=== PATIENT | male | born 1995 | race African-American/Black ===

== ENCOUNTER 2018-06-19 05:06 | Day surgery (SDC) | payer OTHER ==
[2018-06-17 16:06] VITALS: BMI 34.9
[2018-06-19] MEDS ORDERED: PROPOFOL 20 ML ONE ×3 (07:13)
[2018-06-19] MEDS ORDERED: ePHEDrine SULFATE 50 MG/1 ML AMPULE ONE (07:13)
[2018-06-19] MEDS ORDERED: SUCCINYLCHOLINE CHLORIDE 200 MG/10 ML VIAL ONE ×2 (07:15)
[2018-06-19] MEDS ORDERED: BUPIVACAINE HCL/PF 0.5% (5MG/ML) 10 ML VIAL ONE ×2 (07:25→07:36)
[2018-06-19] MEDS ORDERED: DEXAMETHASONE SOD PHOSPHATE/PF 10 MG/ML SDV ONE (07:25)
[2018-06-19] MEDS ORDERED: MIDAZOLAM HCL 2 MG/2 ML SINGLE DOSE VIAL ONE ×3 (07:27→08:10)
--- NOTE | 2018-06-19 08:05 | HP ---
[facility]ellite [facility] - Chief Complaint Chief Complaint: right knee pain/instability - Past Medical History Allergies/Adverse Reactions: Allergies Allergy/AdvReac Type Severity Reaction Status Date / Time No Known Allergies Allergy Verified 06/19/18 06:29 - Current Medications Current Medications: Home Medications Medication Instructions Recorded Oxycodone HCl/Acetaminophen 1 - 2 tab PO Q6H #30 tab MDD 6 06/19/18 [Percocet 5-325 mg Tablet] Satellite Physical Exam - Physical Examination Vital Signs: Vital Signs Period Temp Pulse Resp BP Sys/Engel Pulse Ox Last 24 Hr 98.6 F 94 18 130/72 98 General Appearance: Well Nourished, Well Developed, Alert & Oriented x3 ENT: Clear Lung: Normal air movement Heart: Regular rate & rhythm Extremities: Other (right knee- + swelling, + ttp ,decr rom, + lizz, + ant draw, nvi MRI + acl rupture) Neurological: Intact, Alert, Oriented Satellite Impression/Plan - Impression/Plan Impression: right knee internal derangement Operative Procedure: right knee arthroscopy with ACL reconstruction using btb autograft Date to be Performed: 06/19/18
[2018-06-19] MEDS ORDERED: ceFAZolin SODIUM 1 GM VIAL IVPB ONE (08:25)
[2018-06-19] MEDS ORDERED: ceFAZolin SODIUM 1 GM VIAL ONE (08:26)
--- NOTE | 2018-06-19 09:54 | OP ---
Operative Note - Note: Operative Date: 06/19/18 ([facility]) Pre-Operative Diagnosis: right knee acl rupture Operation: right knee arthroscopy with ACL reconstruction using autograft Post-Operative Diagnosis: Same as Pre-op Surgeon: Los Lorenzo Lipcoat Sprayer: Kristofer Whiting Anesthesiologist/GROUP LEADER SEMICONDUCTOR PROCESSING: Jose Elias Anderson Anesthesia: General, Local Specimens Removed: shavings Estimated Blood Loss (mls): 0 (tourniquet) Operative Report Dictated: Yes
[2018-06-19] MEDS ORDERED: oxyCODONE HCL 5 MG TABLET PO PRN (10:02)
[2018-06-19] MEDS ORDERED: ONDANSETRON 4 MG/2 ML VIAL IVPUSH PRN (10:02)
[2018-06-19] MEDS ORDERED: MEPERIDINE HCL CARPU-JECT 25 MG/1 ML DISP.SYRIN ONE (10:03)
[2018-06-19] MEDS ORDERED: LACTATED RINGERS SOLUTION 1,000 ML IV SCH (10:15)
--- NOTE | 2018-06-19 11:31 | OP ---
DATE OF OPERATION: 06/19/2018 PREOPERATIVE DIAGNOSIS: Right anterior cruciate ligament tear. POSTOPERATIVE DIAGNOSIS: Right anterior cruciate ligament tear. PROCEDURE: Right anterior cruciate ligament reconstruction with [id number] autograft harvesting. SURGICAL ATTENDING: Los Lorenzo MD [employer]: RAMONE Chris ANESTHESIA: Regional and spinal. CLOSURE: An Arthrex metallic interference screw fixation for graft, 2-0 Vicryl for paratenon and subcutaneous, 0 Vicryl for tendon and 3-0 Monocryl with skin glue for the skin. ESTIMATED BLOOD LOSS: Negligible. COMPLICATIONS: None. CONDITION: To recovery room in stable condition. TOURNIQUET TIME: Approximately an hour and 10 minutes. DESCRIPTION OF OPERATIVE PROCEDURE: Patient taken to the operating room on June 19, 2018. Regional and spinal anesthesia was administered by the anesthesiologist. IV Kefzol was prophylactically administered prior to the case. A well-padded pneumatic tourniquet was placed on the right proximal thigh. Right lower extremity was prepped and draped in the usual sterile fashion. Leg was exsanguinated with an Esmarch bandage and tourniquet was inflated to 275 mmHg. A 6-cm longitudinal midline incision over the patellar tendon was incised. Hemostasis achieved with Bovie cautery. This was done after the tourniquet was inflated to 275 mmHg. Flaps were made to expose the tendon from mid patella to tibial tubercle. The central 10 mm of the tendon was harvested using a 10-mm double blade; 10 x 25-mm plugs were harvested using a micro oscillating saw from the patella and the tibial tubercle. Two drill holes were drilled through each plug and passage of a No. 2 FiberWire suture as traction suture was applied. The tendon was prepared on the back table to fit snugly through 10-mm sizers, was measured and was placed on an antibiotic sponge until needed. Patellar tendon was closed using an 0 Vicryl interrupted suture. Next the arthroscopic portion of the case was performed. Superolateral portal was made with a 15 blade followed by a blunt trocar. The medial and lateral infrapatellar portals were then made through the previously made incision. Scope was placed in the lateral infrapatellar portal and up into the suprapatellar pouch. Pouch was visualized to be clean. Medial and lateral gutters were visualized to be clean. The undersurface of the patella, trochlea were visualized to be intact with valgus stress on the knee. Medial compartment was entered and the medial meniscus was visualized, probed, found to be intact. Medial femoral condyle was run, found to be intact as was the medial tibial plateau. In the figure-4 position lateral compartment was entered. Lateral meniscus was visualized and probed, found to be intact. Lateral femoral condyle was run and found to be intact as was the lateral tibial plateau. At 90 degrees the ACL was visualized to be completely torn. Stump was debrided. A notchplasty was then performed gaining sufficient width and height of the notch to perform the procedure and see the posterior aspect of the notch. A 10-mm retro drill was used to drill the tibial tunnel just anterior to the medial proximal tibia and this was done of the appropriate length. Using the AM portal a Beath pin was drilled in the posterior aspect of the notch low on the wall to where it exited the anterolateral distal thigh and this was done with the knee flexed in approximately 125 degrees of flexion. A 10-mm flat drill was used to drill in the femoral tunnel the appropriate depth. Bone fragments were removed. Direct visualization revealed that the tunnel was very posterior and though had a well-maintained posterior wall. The Beath pin was used to shuttle a shuttle suture up and exiting in the anterolateral distal thigh and then was pulled down the tibial tunnel. This shuttle suture was then used to shuttle the graft into the knee. The femoral bone plug was snug inside the femoral tunnel. A county demonstrator was used to help the screw advance. A guidewire was placed between the femoral tunnel and the femoral bone plug. An 8 x 25-mm Arthrex metallic femoral interference screw was then screwed with the knee flexed at about 125 degrees of flexion and a sheath protecting the ACL. Excellent fixation was obtained. The knee was taken through a range of motion, found to have good crossing of the PCL and good clearance in the notch, not impinging on the roof in any position. With 20 degrees of flexion being applied and a posterior drawer being applied a 9 x 25-mm metallic Arthrex fully threaded interference screw was placed between the tibial bone plug and tibial tunnel achieving excellent fixation. The knee was taken through a range of motion and found to go from full extension to full flexion with a negative Analisa, negative anterior-posterior drawer, negative pivot. Direct visualization of the graft revealed excellent tension of the graft, excellent crossing of the PCL and no impingement on the notch. The traction sutures were removed. The donor site and the patella and tibial tubercle were filled with StimuBlast bone putty. The paratenon was closed with 2-0 Vicryl running suture. Subcutaneous was closed with 2-0 Vicryl and 3-0 Monocryl subcuticular with skin glue for skin, 4-0 undyed Vicryl for the superolateral outflow portal. Sterile pressure dressing followed by a knee immobilizer was applied on the lower extremity. Tourniquet was deflated. Total tourniquet time was approximately 70 minutes. No complications. Barby [id number]
[2018-06-19 14:42] VITALS: BP 104/51; PULSE 89; TEMP 98.9
[2018-06-19] MEDS ORDERED: oxyCODONE HCL 5 MG TABLET PO ONE (15:39)
[2018-06-19] MEDS ORDERED: oxyCODONE HCL 5 MG TABLET ONE (15:40)
--- NOTE | 2018-06-22 16:54 | PATH ---
Surgical Pathology Report Patient Name: JUDIE MARTINEZ Med. Rec. #: [id number] /Age/Gender: 1995 (Age: 22) / M Account: [id number] Location: [facility] SURGICAL Taken: 06/19/2018 Received: 06/19/2018 Reported: 06/22/2018 Physicians: Los Lorenzo M.D. Specimen(s) Received RIGHT KNEE SHAVINGS Clinical History Right ACL tear Final Diagnosis RIGHT KNEE SHAVINGS: FRAGMENTS OF BONE AND SYNOVIAL TISSUE SHOWING FOCAL FIBRINOUS EXUDATE, REACTIVE AND DEGENERATIVE CHANGES. Electronically Signed Meagan Batres M.D. Gross Description Received in formalin, labeled "right knee shavings," is a 5.0 x 4.5 x 0.8 cm. aggregate of felipe-yellow soft tissue fragments. A desk representative portion is submitted in one cassette. DL/06/19/2018 saudi06/19/2018
== END 2018-06-19 17:10 | disposition home or self-care (01) ==
LOC: JASU-SURG 05:06
PROVIDERS: ATTEND Orthopaedic Surgery
PROC: 0LBR0ZZ Excision of Left Knee Tendon, Open Approach (ICD-10-PCS; 2018-06-19)
PROC: 0MRN47Z Replacement of Right Knee Bursa and Ligament with Autologous Tissue Substitute, Percutaneous Endoscopic Approach (ICD-10-PCS; principal; 2018-06-19 08:00)
DX: S83.511A Sprain of anterior cruciate ligament of right knee, initial encounter (principal); X58.XXXA Exposure to other specified factors, initial encounter; Y93.9 Activity, unspecified; Y92.9 Unspecified place or not applicable
CPT/HCPCS: 88304-TC; 94760